=== PATIENT | female | born 1935 | race Caucasian/White ===

== ENCOUNTER 2022-01-17 13:57 | Emergency (ER) | payer MEDICARE ==
[2022-01-17] MEDS ORDERED: HYDROCODON-ACE1 EAC4 PO (16:07)
== END 2022-01-17 17:01 | disposition home or self-care (01) ==
LOC: ER1 13:57
DX: M54.41 Lumbago with sciatica, right side (principal); M54.42 Lumbago with sciatica, left side; E11.9 Type 2 diabetes mellitus without complications; Z96.643 Presence of artificial hip joint, bilateral
CPT/HCPCS: 73522; 99283

== ENCOUNTER 2022-03-05 11:59 | Emergency (ER) | payer MEDICARE ==
[~2022-03-05 11:59] MED LIST: HYDROCODON-ACE1 EAC4 PO
== END 2022-03-05 14:28 | disposition home or self-care (01) ==
LOC: ER1 11:59
DX: M25.562 Pain in left knee (principal); E11.9 Type 2 diabetes mellitus without complications; E78.5 Hyperlipidemia, unspecified; I10 Essential (primary) hypertension; Z88.8 Allergy status to other drugs, medicaments and biological substances; Z88.1 Allergy status to other antibiotic agents
CPT/HCPCS: 73562; 99283